=== PATIENT | male | born 1980 | race Caucasian/White ===

== ENCOUNTER 2024-11-04 10:47 | Emergency (ER) | payer OTHER, SELFPAY ==
[2024-11-04] VITALS (14 sets, daily range): BP systolic 107–152; BP diastolic 69–115
--- NOTE | 2024-11-04 11:27 | ED.GENMED ---
History of Present Illness
General
Chief Complaint: Cardiac Symptoms
Time Seen by Provider: 11/04/24 11:27
History of Present Illness
History of Present Illness:
TIME OF INITIAL ENCOUNTER: 11:30 AM
HPI: Patient was found to be in rapid atrial flutter by PCP and was sent here for further evaluation. He has been having intermittent palpitations over the last several months. In 2020 he was here with atrial fibrillation/flutter that broke
without intervention. He had an with Dr. Kelly ablation in 2020.
EXAM:
GENERAL: Well appearing in no distress
HEENT: Moist oral mucosa
CARDIOVASCULAR: No murmurs, tachycardic heart rate, regular rhythm, No chest wall tenderness
PULMONARY: No respiratory distress, breath sounds are clear and equal
ABDOMEN: Soft with no peritoneal signs, no tenderness
NEUROLOGIC: Excellent strength all extremities, no coordination deficits
PSYCHIATRIC: Appropriate mental status, normal insight and judgement
EXTREMITIES: Nontender, no edema, moves all extremities equally
SKIN: No rash, no lesions
NUMBER AND COMPLEXITY OF PROBLEMS ADDRESSED AT THE ENCOUNTER
� Chronic conditions affecting care: History of atrial flutter status post ablation
� Acute Exacerbation and/or Progression of Chronic Illness: This is an acute but recurring problem
� Differential Diagnosis includes: Recurrence of A-fib/flutter, electrolyte abnormality, thyroid disease
AMOUNT AND/OR COMPLEXITY OF DATA TO BE REVIEWED AND ANALYZED
� I performed an independent evaluation of and my interpretation is:
EKG: A flutter with 2-[address]
CT:
X-rays:
Laboratory Studies: CBC unremarkable, chemistries, troponin, TSH unremarkable
Other:
� Review of other/old records: I reviewed records from 2020 indicating that the patient was here with atrial flutter that broke spontaneously and had an ablation the following month with Dr. Kelly
� Clinical information was obtained by an independent historian: None needed
� Prescriptions/Medications Considered but not given:
� Further testing considered but not performed:
RISK OF COMPLICATIONS AND/OR MORBIDITY OR MORTALITY OF PATIENT MANAGEMENT
� Social determinants of health affecting care: Lives at home
� Discussion with other providers: Discussed case with cardiology, Dr. Roy who recommends electrocardioversion as his CHADS2 Vascor is 0 despite likely being in atrial flutter recently
� Escalation of care including admission/observation vs risk of discharge considered: The patient arrived with heart rates in the 140s found to be in rapid atrial flutter. He was given 5 mg of IV Lopressor. He currently does
not take any beta-adele as he states his resting heart rate is usually in the 40s. He is not on anticoagulation currently.
ANY OTHER UPDATES:
12 PM: After Lopressor IV given, rate remained the same in the 130s�still in atrial flutter with RVR
12:51 PM: Patient was sedated and electrically cardioverted in 1 attempt back to sinus rhythm. Will place on Eliquis for the next month and start very low-dose beta-adele As he is concerned of baseline low heart rates.
Phy Exam
Physical Exam
Physical Exam:
See HPI
Course
Orders/Labs/Results
Orders:
Orders
11/04/24 10:47
Electrocardiogram (*1) Urgent
Reason for Study: Tachycardia
EKG- Treatment ONCE
11/04/24 11:36
Metoprolol [Lopressor] 5 mg IV NOW STA
11/04/24 11:38
Complete Blood Count/With Diff Urgent
Comprehensive Metabolic Panel Urgent
Magnesium Urgent
TSH Reflex To Free T4 Urgent
Troponin I Urgent
11/04/24 11:58
Metoprolol [Lopressor] 5 mg IV NOW STA
11/04/24 12:18
Propofol [Diprivan] 20 ml .ROUTE .STK-MED
11/04/24 12:57
EKG [Electrocardiogram (*1)] Urgent
Reason for Study: Atrial Flutter
EKG- Treatment ONCE
11/04/24 13:03
Apixaban [Eliquis] 5 mg PO NOW STA
Abnormal Lab Results
11/04/24
11:38
MCH 32.1 H pg
(27.0-31.0)
MPV 10.8 H fL
(7.4-10.4)
Absolute Lymphs (auto) 1.0 L 10^3/uL
(1.2-3.4)
Lymphocytes % 18.8 L %
(20.5-51.1)
Chloride 108 H mmol/L
(98-107)
BUN 21 H mg/dl
(9-20)
Glucose 133 H mg/dl
(70-99)
Alkaline Phosphatase 34 L U/L
(38-126)
11/04/24 11:38
11/04/24 11:38
Vital Signs
Initial and Last Documented VS:
Initial Vital Signs
Temp Pulse Resp Pulse Ox
36.6 C 140 16 98
11/04/24 10:56 11/04/24 10:56 11/04/24 10:56 11/04/24 10:56
Last Documented Vital Signs
Temp Pulse Resp BP Pulse Ox
36.6 C 67 14 116/77 97
11/04/24 10:56 11/04/24 13:20 11/04/24 13:20 11/04/24 13:20 11/04/24 13:20
Procedures
Cardioversion
Indication:: Other (AFlutter w/ RVR)
Performed by:: , Dr. Torrez
Synchronized?: Yes
Energy Used: 200 joules
Number of attempts: 1
Successful?: Yes
ASA Risk Score: Class I
Any reaction or bad outcome to prior sedation/anesthesia?: No history of a reaction
Sedation level to be attained: moderate
Chart and allergies reviewed: Yes
Patient reassessed prior to sedation: Yes
Time out completed at (validating right patient & procedure): 12:51
History of difficult intubation: No
Airway free of obstruction: Yes
Patient has a gag reflex: Yes
Patient is able to open mouth: Yes
Patient has no dentures: Yes
Patient has no loose teeth: Yes
Medication administered by Provider during Moderate Sedation: IV Propofol (mg)
Total dose administered: 100
Time drug administered: 12:51
Start Time: 12:51
Stop Time: 13:02
*Critical Care Note
Total Time (30-74mins, 75-104mins- exclusive of procedures): 45min
comment:
The patient arrived markedly tachycardic with rates in the 140s. His vital signs were very closely monitored throughout stay in the emergency room. He was given beta-adele IV twice without any significant improvement. Multiple discussions with
cardiology. Reassessed again after cardioversion.
ED Attending Note
-
Portions of this chart may have been created with voice recognition software.� Occasional wrong word or��sound alike� substitutions may have occurred due to the inherent limitations of voice recognition software.
Discharge Plan
Departure
Patient Disposition: Home (Routine Discharge)
Date of Disposition: 11/04/24
Time of Disposition: 13:03
Patient with high blood pressure during this ER visit?: Yes
Discharge Problem:
Atrial flutter with rapid ventricular response
Instructions: Atrial flutter, Cardioversion, BLOOD PRESSURE
Prescriptions:
New
Eliquis 5 mg tablet
5 mg PO BID Qty: 60 0RF
metoprolol succinate 25 mg tablet extended release 24 hr
12.5 mg PO DAILY Qty: 30 0RF
No Action
cholecalciferol (vitamin D3) [Vitamin D3] 1,000 UNIT capsule
500 unit PO DAILY
omega-3 fatty acids-fish oil [Fish Oil Extra Strength] 1 EACH capsule
1 ea PO DAILY
[id number] [Medardo Multivitamin For Men] 1 EACH tablet
1 ea PO BID
turmeric root extract 500 MG capsule
1,000 mg PO BID
apixaban [Eliquis] 5 MG tablet
5 mg PO BID Qty: 60 5RF
Referrals:
Bautista Kelly MD [Active, Cardiology]
Cesar Dunalp DO [Family Provider, Family Practice]
Activity Restrictions/Additional Instructions:
You are in atrial flutter with rates in the 130s to 140s upon arrival. I spoke to Dr. Roy (partner of Dr. Kelly) who recommended cardioversion which was successfully performed. Follow-up with their cardiology group. No driving or making
any important decisions today as he did receive propofol for sedation today. You must have a ride home. Repeat EKG after cardioversion shows normal sinus rhythm. Cardiology wants you to stay on Eliquis for the next 30 days. I sent a prescription
for Eliquis to your pharmacy.
Interventions
Interventions:
*Risk Screen - Suicide Last Done: 11/04/24 11:41
*General Assessment Last Done: 11/04/24 11:41
*Neglect/Abuse Screening Last Done: 11/04/24 11:41
*ED- Fall Risk Assessment Last Done: 11/04/24 11:41
*ED COVID-19 Vaccine History Last Done: 11/04/24 11:41
ED- Pulmonary Assessment Last Done: 11/04/24 11:47
ED- Cardiac Assessment Last Done: 11/04/24 11:47
Discharge Date and Time
Print Language: FAROESE
[2024-11-04] MEDS: LOPRESSOR 5 MG IV ×2 (11:42→12:03)
[2024-11-04 11:48] LABS: % Eosinophils 0.6 % (0-6); % Immature Granulocytes 0.4 % (0-0.5); % Lymphocytes 18.8 % (20.5-51.1); % Monocytes 7.7 % (1.7-9.3); % Neutrophils 71.5 % (42.2-75.2); Absolute Basophils 0.1 10^3/uL (0-0.2); Absolute Monocytes 0.4 10^3/uL (0.1-0.6); Absolute Neutrophils 3.7 10^3/uL (1.4-6.5); Hematocrit 46.6 % (39.0-52.0); Hemoglobin 16.6 g/dL (13.0-18.0); Mean Corp Hgb Conc. 35.6 g/dL (33.0-37.0); Mean Corpuscular Hgb 32.1 pg (27.0-31.0); Mean Corpuscular Volume 90.1 fL (80.0-94.0); Mean Platelet Volume 10.8 fL (7.4-10.4); Nucleated Red Blood Cells % 0 % (-); Platelet Count 144 10^3/uL (130-400); Red Blood Cell Count 5.17 10^6/uL (4.70-6.10); White Blood Cell Count 5.2 10^3/uL (4.8-10.8)
[2024-11-04 12:14] LABS: Troponin I < 0.012 ng/ml
[2024-11-04 12:29] LABS: ALT (SGPT) 30 U/L (0-50); AST (SGOT) 29 U/L (17-59); Albumin 4.9 g/dl (3.5-5.0); Alkaline Phosphatase 34 U/L (38-126); Blood Urea Nitrogen 21 mg/dl (9-20); Calcium 9.6 mg/dl (8.4-10.2); Carbon Dioxide 26 mmol/L (22-30); Chloride 108 mmol/L (98-107); Glucose 133 mg/dl (70-99); Potassium 4.5 mmol/L (3.5-5.1); Sodium 142 mmol/L (135-145); Total Bilirubin 1.2 mg/dl (0.2-1.3); Total Protein 7.3 g/dl (6.3-8.2); eGFR > 60.00
[2024-11-04] MEDS: ELIQUIS 5 MG PO (13:21)
== END 2024-11-04 13:52 | disposition home or self-care (01) ==
LOC: EMR 10:47
PROVIDERS: EMERGENCY PHYSICIAN Emergency Medicine; FAMILY PHYSICIAN Family Medicine
DX: R00.2 Palpitations (principal); I48.92 Unspecified atrial flutter; Z79.01 Long term (current) use of anticoagulants
CPT/HCPCS: 99284; 92960; 96374; 96375; 80053; 83735; 84443; 84484; 85025; 93005

== ENCOUNTER 2024-11-10 10:23 | Emergency (ER) | payer OTHER, SELFPAY ==
[2024-11-10] VITALS (46 sets, daily range): BP systolic 81–137; BP diastolic 42–84
[2024-11-10 10:42] LABS: % Basophils 0.5 % (0-2); % Eosinophils 0.7 % (0-6); % Immature Granulocytes 0.1 % (0-0.5); % Lymphocytes 19.1 % (20.5-51.1); % Monocytes 8.7 % (1.7-9.3); % Neutrophils 70.9 % (42.2-75.2); Absolute Eosinophils 0.1 10^3/uL (0-0.7); Absolute Lymphocytes 1.4 10^3/uL (1.2-3.4); Absolute Monocytes 0.7 10^3/uL (0.1-0.6); Absolute Neutrophils 5.3 10^3/uL (1.4-6.5); Hematocrit 51.1 % (39.0-52.0); Hemoglobin 17.7 g/dL (13.0-18.0); Mean Corp Hgb Conc. 34.6 g/dL (33.0-37.0); Mean Corpuscular Hgb 31.2 pg (27.0-31.0); Mean Platelet Volume 10.6 fL (7.4-10.4); Nucleated Red Blood Cells % 0 % (-); Platelet Count 188 10^3/uL (130-400); Red Blood Cell Count 5.68 10^6/uL (4.70-6.10); Red Cell Dist. Width 12.2 % (11.5-14.5); White Blood Cell Count 7.5 10^3/uL (4.8-10.8)
[2024-11-10 11:06] LABS: ALT (SGPT) 45 U/L (0-50); AST (SGOT) 36 U/L (17-59); Albumin 4.8 g/dl (3.5-5.0); Alkaline Phosphatase 35 U/L (38-126); Blood Urea Nitrogen 21 mg/dl (9-20); Calcium 9.2 mg/dl (8.4-10.2); Carbon Dioxide 26 mmol/L (22-30); Chloride 108 mmol/L (98-107); Glucose 121 mg/dl (70-99); Sodium 141 mmol/L (135-145); Total Bilirubin 1.5 mg/dl (0.2-1.3); Total Protein 7.4 g/dl (6.3-8.2); eGFR 58.15
[2024-11-10 11:09] LABS: Troponin I < 0.012 ng/ml
--- NOTE | 2024-11-10 11:12 | ED.GENMED ---
History of Present Illness
General
Chief Complaint: Heart Rate Problem
Source: patient
Exam Limitations: none
Time Seen by Provider: 11/10/24 10:45
History of Present Illness
History of Present Illness:
Patient started last night with rapid heartbeat and pounding. No chest pain or shortness of breath. History of atrial flutter and ablation. Here 6 days ago with a cardioversion. Took a dose of Toprol prior to arrival. No other symptoms
Past History
Past History
ED Past Medical History: Arrthythmia
Review of Systems
Review of Systems
All Other Systems: Not applicable
Constitutional: Denies fever or chills
Cardiac: Denies chest pain or syncope
ABD/GI: Denies abdominal pain
Phy Exam
Physical Exam
Physical Exam:
GENERAL: Alert and oriented in no apparent distress
EYE: Orbits normal.
NECK: Supple, no significant adenopathy.
ENT: Pharynx without erythema
CARDIAC: Tachycardic and regular no murmur
LUNGS: Clear breath sounds,normal
ABDOMEN: Soft, without focal tenderness or distention
NEUROLOGICAL: Alert and oriented , grossly non-focal
SKIN: Warm and dry, no rash or lesion, no discoloration, skin intact.
MUSCULOSKELETAL: No edema,no deformity.Good color
PSYCH: Normal and appropriate interaction.
Course
Orders/Labs/Results
Orders:
Orders
11/10/24 10:24
Electrocardiogram (*1) Urgent
Reason for Study: Chest Pain
11/10/24 10:25
EKG- Treatment ONCE
11/10/24 10:32
Complete Blood Count/With Diff Urgent
Comprehensive Metabolic Panel Urgent
Troponin I Urgent
11/10/24 10:57
Propofol [Diprivan] 20 ml .ROUTE .STK-MED
11/10/24 11:19
Etomidate [Amidate 20 mg] 20 mg .ROUTE .STK-MED ONE
11/10/24 11:22
Fentanyl Citrate/Pf [Sublimaze] 100 mcg .ROUTE .STK-MED ONE
11/10/24 11:30
EKG [Electrocardiogram (*1)] Urgent
Reason for Study: Atrial Flutter
11/10/24 11:31
EKG- Treatment ONCE
11/10/24 11:41
Propofol [Diprivan] 20 ml .ROUTE .STK-MED
Abnormal Lab Results
11/10/24
10:32
MCH 31.2 H pg
(27.0-31.0)
MPV 10.6 H fL
(7.4-10.4)
Absolute Monos (auto) 0.7 H 10^3/uL
(0.1-0.6)
Lymphocytes % 19.1 L %
(20.5-51.1)
Chloride 108 H mmol/L
(98-107)
BUN 21 H mg/dl
(9-20)
Creatinine 1.5 H mg/dL
(0.7-1.3)
Glucose 121 H mg/dl
(70-99)
Total Bilirubin 1.5 H mg/dl
(0.2-1.3)
Alkaline Phosphatase 35 L U/L
(38-126)
11/10/24 10:32
11/10/24 10:32
Vital Signs
Initial and Last Documented VS:
Initial Vital Signs
Temp Pulse Resp BP Pulse Ox
98.2 F 133 16 107/75 99
11/10/24 10:27 11/10/24 10:27 11/10/24 10:27 11/10/24 10:27 11/10/24 10:27
Last Documented Vital Signs
Temp Pulse Resp BP Pulse Ox
98.7 F 60 16 106/64 96
11/10/24 11:35 11/10/24 13:30 11/10/24 13:30 11/10/24 13:30 11/10/24 13:30
Procedures
Cardioversion
Indication:: Other (aflutter)
Performed by:: myself
Synchronized?: Yes
Energy Used: 200 joules
Number of attempts: 1
Successful?: Yes
ASA Risk Score: Class I
Any reaction or bad outcome to prior sedation/anesthesia?: No history of a reaction
Sedation level to be attained: moderate
Chart and allergies reviewed: Yes
Patient reassessed prior to sedation: Yes
Time out completed at (validating right patient & procedure): 11:24
History of difficult intubation: No
Airway free of obstruction: Yes
Patient has a gag reflex: Yes
Patient is able to open mouth: Yes
Patient has no dentures: Yes
Patient has no loose teeth: Yes
Medication administered by Provider during Moderate Sedation: IV Propofol (mg)
Total dose administered: 100
Time drug administered: 11:24
Start Time: 11:24
Stop Time: 11:35
*Pulse Oximetry
Patient hypoxic: no
Comment: 97%
*Glue Reel Operator Interpretation
Rate: tachycardiac
Interpretation: abnormal
Heart Rate: 135
Rhythm: atrial flutter
*Critical Care Note
Total Time (30-74mins, 75-104mins- exclusive of procedures): 40
Data Reviewed
Review of Other/Old Records Reveals: Labs and Records
Update Note
Update Note:
Patient has remained stable nontoxic. No arrhythmias. Cardiology despite the bradycardia would like to start a very low-dose of Toprol-XL and follow-up closely with the EP emissions engineer
ED Attending Note
-
Portions of this chart may have been created with voice recognition software.� Occasional wrong word or��sound alike� substitutions may have occurred due to the inherent limitations of voice recognition software.
Discharge Plan
Departure
Patient Disposition: Home (Routine Discharge)
Date of Disposition: 11/10/24
Time of Disposition: 13:28
Patient with high blood pressure during this ER visit?: No
Discharge Problem:
Paroxysmal atrial flutter/RVR, Very mild renal insufficiency
Instructions: Atrial flutter - Discharge instructions, MODERATE SEDATION ADULT
Prescriptions:
New
metoprolol succinate [Toprol XL] 25 mg tablet extended release 24 hr
12.5 mg PO DAILY Qty: 20 0RF
No Action
cholecalciferol (vitamin D3) [Vitamin D3] 1,000 UNIT capsule
500 unit PO DAILY
omega-3 fatty acids-fish oil [Fish Oil Extra Strength] 1 EACH capsule
1 ea PO DAILY
[id number] [Medardo Multivitamin For Men] 1 EACH tablet
1 ea PO BID
turmeric root extract 500 MG capsule
1,000 mg PO BID
apixaban [Eliquis] 5 MG tablet
5 mg PO BID Qty: 60 5RF
Eliquis 5 mg tablet
5 mg PO BID Qty: 60 0RF
metoprolol succinate 25 mg tablet extended release 24 hr
12.5 mg PO DAILY Qty: 30 0RF
Referrals:
[facility] [Other]
Bautista Kelly MD [Active, Cardiology] - Tomorrow
Tristan De Paz MD [Non-Admitting Privileges, Refrigeration Plant Operator]
Cesar Dunlap DO [Family Provider, Family Practice]
Activity Restrictions/Additional Instructions:
Call the emissions engineer tomorrow morning for close follow-up. Make sure that they understand you were here for cardioversions twice within a week
Your kidney function is very slightly off. Likely a hydration issue. However I would stay away from aspirin Motrin Aleve. Stay well-hydrated and maybe repeat the labs in a week or so
Interventions
Interventions:
*Risk Screen - Suicide Last Done: 11/10/24 10:27
*General Assessment Last Done: 11/10/24 10:47
*Neglect/Abuse Screening Last Done: 11/10/24 10:27
*ED COVID-19 Vaccine History Last Done: 11/10/24 10:47
*Nursing Disposition Last Done: 11/10/24 13:39
ED- Cardiac Assessment Last Done: 11/10/24 10:47
ED- Pulmonary Assessment Last Done: 11/10/24 10:47
Discharge Date and Time
Discharge Date/Time: 11/10/24 13:47
Print Language: IRISH
== END 2024-11-10 13:47 | disposition home or self-care (01) ==
LOC: EMR 10:23
PROVIDERS: Emergency Medicine; EMERGENCY PHYSICIAN Emergency Medicine; FAMILY PHYSICIAN Family Medicine
DX: I48.92 Unspecified atrial flutter (principal); N28.9 Disorder of kidney and ureter, unspecified
CPT/HCPCS: 99291; 92960; 80053; 84484; 85025; 93005

== ENCOUNTER 2025-01-13 06:33 | Day surgery (SDC) | payer OTHER, SELFPAY ==
[2024-12-24 09:43] VITALS: BMI 29.7
[2024-12-24 10:24] LABS: Hematocrit 47.9 % (39.0-52.0); Hemoglobin 16.5 g/dL (13.0-18.0); Mean Corp Hgb Conc. 34.4 g/dL (33.0-37.0); Mean Corpuscular Volume 90.2 fL (80.0-94.0); Nucleated Red Blood Cells % 0 % (-); Platelet Count 154 10^3/uL (130-400); Red Cell Dist. Width 12.2 % (11.5-14.5)
[2024-12-24 10:47] LABS: ALT (SGPT) 30 U/L (0-50); AST (SGOT) 31 U/L (17-59); Albumin 4.8 g/dl (3.5-5.0); Alkaline Phosphatase 31 U/L (38-126); Blood Urea Nitrogen 30 mg/dl (9-20); Calcium 9.2 mg/dl (8.4-10.2); Carbon Dioxide 30 mmol/L (22-30); Chloride 103 mmol/L (98-107); Estimated Creatinine Clearance 71 ml/min; Glucose 89 mg/dl (70-99); Potassium 4.3 mmol/L (3.5-5.1); Sodium 140 mmol/L (135-145); Total Protein 7.1 g/dl (6.3-8.2); eGFR > 60.00
[2025-01-13] VITALS (12 sets, daily range): BP systolic 92–124; BP diastolic 53–69; BMI 29.9
[2025-01-13] MEDS: TYLENOL 1000 MG PO (07:16)
--- NOTE | 2025-01-13 09:22 | ITS.CL.ABL ---
Skip Load Driver - Ablation
Ablation
Procedure Report:
Atrial Flutter ablation:
Mr. Cowan is a very pleasant 44 yr old gentleman with h/o typical atrial flutter ablation in 2020 with first recurrence after 5 years and now in highly symptomatic persistent atrial flutter presented for EP study and ablation.
Date of the Procedure:
01/13/2025
Indications:
Atrial flutter.
Pre-Operative Diagnosis:
Typical Atrial Flutter
Post-Operative Diagnosis:
Supra-ventricular tachycardia with Typical Atrial Flutter
Procedure Performed:
EP study
Atrial flutter ablation with cavo-tricuspid isthmus line block formation
Performing Physician:
Bautista Kelly MD
Assistants:
EP staff
Anesthesia:
See anesthesia records
Detailed Description of the Procedure:
Written informed consent was obtained from the patient after a full explanation of the risks and benefits of the procedure including the risks of sedation and anesthesia.
The patient was brought to the electrophysiology laboratory in stable condition in fasting state. Continuous electrocardiographic and hemodynamic monitoring was initiated.
The initial rhythm was atria flutter.
The procedure site was meticulously prepared with surgical scrub and allowed to dry with no pooling. Sterile draping was applied to cover the procedure site. The image intensifier was draped with sterile bag and positioned over the patient.
After infusion of local anesthetic, vascular access was obtained under ultrasound guidance and sheaths were placed over guide wire as detailed below.
Sheath and Catheter Placement:
The following catheters / sheaths were placed
Sheaths:
��������� 8Fr in right femoral vein � upgraded to Agilis sheath
��������� 7Fr in the right femoral vein
Catheters:
��������� Biosense Titus Thermocool STSF bidirectional� - at locations of HRA, RV, CS and His.
��������� Decapolar catheter - at locations of CS
A 5000 units of heparin was given after the access was complete.
Tachycardia:
The tachycardia was studied in detail.� the cycle length was 250 msec. The tachycardia is concentric from prox to distal on the CS. With the previous ablation done, decision was made to proceed to electroanatomic mapping.
Electroanatomic mapping (EAM):
The right atrium was mapped in the tachycardia. The tachycardia was fast but hemodynamically stable and could be mapped. The obtained maps of the tachycardia and the electrograms were studied in detail. EAM showed counter clockwise typical atrial
flutter with cavo tricuspid isthmus dependence
Ablation # 1: Typical Atrial Flutter Ablation:
Radiofrequency ablation was performed using a 3.5mm, open irrigation, force-sensing bidirectional ablation catheter ([employer] STSF) in the cavotricuspid isthmus from the tricuspid annulus to the IVC ridge.
The flutter slowed and terminated into sinus rhythm once the CTI block was achieved.
Post ablation mapping was done:
Following observations were noted.
����������� -Bidirectional block was confirmed across the CTI line with differential pacing.
����������� -Double potentials were spaced greater than 95 msec apart.
����������� -The conduction time across the CTI line from proximal CS pacing was 168 msec.
����������� -EAM of the right atrium was obtained with coronary sinus pacing and showed a line of block at the CTI.
����������� -The time interval just lateral to the ablation lesions was 168 msec and the lateral wall was 92 msec
����������� - All these maneuvers confirmed the block at the CTI line.
- Post ablation HV interval was unchanged at 45 msec
The patient was observed in the EP lab for 15 minutes and the repeat study showed stable block at the CTI location and CTI conduction time was 170 msec.
Procedure End
Following the completion of the EP study, catheters were removed.� The sheaths were removed and hemostasis achieved with figure of 8 suture and manual compression.
Estimated Blood loss:
<5 cc
Specimens Removed:
None.
Implants / Devices:
None
Urine output:
None
Packs / Drains/ Tubes:
None
Instrument / Sponge Count Correct:
Yes
Fluoro time:
0 - Flouroless
Complications of the Procedure:
None
Condition of Patient at Time of Transfer:
Hemodynamically stable with no neurological or vascular compromise.
Summary:
Successful SVT ablation with typical atrial flutter ablation with cavo-tricuspid isthmus line of block formation.
.
--- NOTE | 2025-01-13 13:49 | W.PN.UPDATE ---
Update Note
Progress Note Update
Pt seen post Atrial Flutter CTI RFA. Right groin site without ht/bleeding, non tender. OOB ambulating, urinating without difficulty. Post EKG NSR 70s, no acute changes. Resume eliquis tonight at usual time. Followup at [facility] as scheduled. Home today
if groin site/tele remain stable.
== END 2025-01-13 13:57 | disposition home or self-care (01) ==
LOC: CATH 06:33
PROVIDERS: ATTENDING PHYSICIAN Internal Medicine Cardiovascular Disease; FAMILY PHYSICIAN Family Medicine
DX: I48.91 Unspecified atrial fibrillation (principal); Z79.899 Other long term (current) drug therapy; I47.10 Supraventricular tachycardia, unspecified; I45.10 Unspecified right bundle-branch block; I48.3 Typical atrial flutter; I47.20 Ventricular tachycardia, unspecified
CPT/HCPCS: C1894; C1730; C1732; C1766; 36415; 80053; 85025; 86850; 86900; 86901; 93005; 93653